=== PATIENT | female | born 2000 | race Caucasian/White ===

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

== ENCOUNTER 2021-06-09 22:08 | Emergency (ER) | payer OTHER ==
[~2021-06-09] VITALS: Ht 170.2 cm; Wt 77.7 kg
[~2021-06-09 22:08] MED LIST changes: +CIPR250T30 PO; +FLUC100T7 PO
--- NOTE | 2021-06-09 22:53 | PHYS DOC ---
Past History Past Surgical History: Other Alcohol Use: None Adult General Chief Complaint Chief Complaint: HEAD INJURY/TRAUMA HPI HPI Patient is a 20-year-old female who presents after head injury. States she was walking her dog, bent down to get something and the dog reared up and accidentally head butted her. States this happened 2 to 3 hours before coming to the emergency department. Denies any loss of consciousness, changes in vision, neck pain, chest pain, shortness of breath, abdominal pain, vomiting, dysuria, hematuria, blood in stool or diarrhea. States that she did feel nauseous afterwards for little bit but that has resolved. Review of Systems Review of Systems Review of systems otherwise unremarkable except noted in HPI Allergies Allergies Allergies Coded Allergies Type Severity Reaction Last Updated Verified shellfish derived Allergy Unknown 11/15/20 Yes Physical Exam Physical Exam Constitutional: Well developed, well nourished, no acute distress, non-toxic ap pearance. [] HENT: Normocephalic, atraumatic, Eyes: PERRLA, EOMI, conjunctiva normal, no discharge. [] Neck: Normal range of motion, no tenderness, supple, no stridor. [] Cardiovascular:Heart rate regular rhythm, no murmur [] Lungs & Thorax: No respiratory distress Back: No tenderness, Extremities: No tenderness, no cyanosis, no clubbing, ROM intact, no edema. [] Neurologic: Alert and oriented X 3, normal motor function, normal sensory function, able to sit, stand and walk without issue no focal deficits noted. [] Psychologic: Affect normal, judgement normal, mood normal. [] EKG EKG [] Radiology/Procedures Radiology/Procedures [] Heart Score C/O Chest Pain: No Risk Factors: Risk Factors: DM, Current or recent (<one month) smoker, HTN, HLP, family history of CAD, obesity. Risk Scores: Risk Factors: DM, Current or recent (<one month) smoker, HTN, HLP, family history of CAD, obesity. Course & Med Decision Making Course & Med Decision Making Patient is a 20-year-old female who presents after her dog head butted her, 2 to 3 hours before coming to the emergency department which made her feel nauseous Vital signs not concerning. Physical exam noted above. Patient took Tylenol before coming in declined need for any ice or pain medicine. Nausea resolved. negative. Discussed all findings with patient. Discussed symptom management at home. Advised to follow-up with primary care as needed. Gave return precautions to the ED. Patient grateful, verbalized understanding and agreed with plan of discharge. [] Dragon Disclaimer Dragon Disclaimer This electronic medical record was generated, in whole or in part, using a voice recognition dictation system. Departure Departure: Impression: Primary Impression: Head injury Disposition: HOME / SELF CARE / HOMELESS Condition: GOOD Referrals: [facility] (PCP) Patient Instructions: Concussion and Brain Injury Additional Instructions: Thank you for coming into the emergency department tonight and allowing us to take care of you. Please read the attached information carefully to go over things we discussed. You can use Tylenol, ibuprofen and ice as needed. Please follow-up with your primary care physician tomorrow to update on ED visit and set up a follow-up as needed. Please come back with new or concerning symptoms as discussed. GER LINDER MD Jun 09, 2021 22:53
[2021-06-09 23:40] VITALS: BP 110/60
== END 2021-06-09 23:40 | disposition home or self-care (01) ==
LOC: ER 22:08
DX: S09.90XA Unspecified injury of head, initial encounter (principal); Z91.013 Allergy to seafood; W54.1XXA Struck by dog, initial encounter; Y93.K1 Activity, walking an animal; Y92.89 Other specified places as the place of occurrence of the external cause; Y99.8 Other external cause status
CPT/HCPCS: 81025; 99282